=== PATIENT | female | born 1965 | race Caucasian/White ===

== ENCOUNTER 2016-12-25 16:16 | Emergency (ER) | payer BC ==
[~2016-12-25] VITALS: Ht 165.1 cm; Wt 78.6 kg
[~2016-12-25 16:16] MED LIST: ASPIRIN 81M81 MG/TA2 PO; FISH OIL1000 MG PO; LIPITOR 40MG TA40 MG PO; NO HOME MEDICATIONS; NORVASC 5MG5 MG/TAB PO; PLAVIX 75MG TAB75 MG PO; TOPROL XL 50MG50 MG PO; ZESTRIL 5MG5 MG PO
[2016-12-25 16:18] VITALS: BP 138/76; PULSE 86; TEMP 98.5
[2016-12-25] MEDS ORDERED: PREDNISONE10 MG PO (18:07)
[2016-12-25] MEDS ORDERED: LEVAQUIN 750MG750 M1 PO (18:07)
[2016-12-25] MEDS ORDERED: NORCO 325 MG-51 TAB PO (18:07)
== END 2016-12-25 18:21 | disposition home or self-care (01) ==
LOC: COL.ER 16:16
DX: J44.0 Chronic obstructive pulmonary disease with (acute) lower respiratory infection (principal); J20.9 Acute bronchitis, unspecified; J44.1 Chronic obstructive pulmonary disease with (acute) exacerbation; R07.89 Other chest pain; I10 Essential (primary) hypertension; I25.10 Atherosclerotic heart disease of native coronary artery without angina pectoris; Z95.5 Presence of coronary angioplasty implant and graft; F17.210 Nicotine dependence, cigarettes, uncomplicated
CPT/HCPCS: J1885

== ENCOUNTER → 2017-06-13 | Outpatient (CLI) | payer BC ==
[~2017-06-13] MED LIST changes: +LEVAQUIN 750MG750 M1 PO; +NORCO 325 MG-51 TAB PO; +PREDNISONE10 MG PO
== END ==
LOC: COL.PUL 05-23 13:00
DX: R06.02 Shortness of breath (principal); F17.200 Nicotine dependence, unspecified, uncomplicated
CPT/HCPCS: J7674

== ENCOUNTER 2018-06-03 11:06 | Emergency (ER) | payer BC ==
[~2018-06-03] VITALS: Ht 162.6 cm; Wt 83.2 kg
[2018-06-03 11:09] VITALS: TEMP 98.3
[2018-06-03 11:47] LABS: BASO % 0.3 % (0.0-2.0); EOS # 0.1 (0.0-0.7); EOS % 0.8 % (0-4.0); GRAN # 10.3 (1.4-6.5); HEMATOCRIT 45.5 % (37.0-47.0); HEMOGLOBIN 15.1 g/dl (12.5-16.0); LYMPH # 2.8 (1.2-3.4); LYMPH % 19.6 % (20.0-51.0); MEAN CELL VOLUME 90 fl (80.0-100.0); MEAN CORPUSCULAR HEMOGLOBIN 30 pg (27.0-31.0); MEAN CORPUSCULAR HGB CONC 33 g/dl (33.0-37.0); MEAN PLATELET VOLUME 12.7 fl (7.4-10.4); MONO # 0.8 (0.1-0.6); MONO % 5.9 % (1.7-9.3); PLATELET COUNT 191 K/mm3 (130-400); RED BLOOD COUNT 5.04 M/mm3 (4.10-5.30); REDCELL DISTRIBUTION WIDTH-CV 12.8 % (11.5-14.5)
[2018-06-03 11:56] LABS: ALBUMIN 3.9 gm/dL (3.5-5.0); BILIRUBIN,TOTAL 0.6 mg/dL (0.0-1.0); CALCIUM 9.4 mg/dL (8.4-10.2); CREATININE, serum 0.88 mg/dL (0.52-1.25); POTASSIUM 4.1 mmol/L (3.4-5.0); TOTAL PROTEIN 7.3 gm/dL (6.4-8.2)
[2018-06-03] MEDS ORDERED: ZITHROMAX TRI-500 MG PO (12:57)
[2018-06-03] MEDS ORDERED: PREDNISONE20 MG PO (12:57)
[2018-06-03] MEDS ORDERED: ALBUTEROL0.83 MG/ML IH (12:57)
[2018-06-03] MEDS ORDERED: GLUCOPHAGE500 MG/TAB PO (12:57)
[2018-06-03] MEDS ORDERED: PRAVACHOL 40MG40 MG PO (12:58)
[2018-06-03] MEDS ORDERED: PERCOCET 325 MG1 TA2 PO (13:09)
[2018-06-03] MEDS ORDERED: NAPROSYN500 MG PO (13:09)
[2018-06-03 14:06] VITALS: BP 114/61; PULSE 71
== END 2018-06-03 14:07 | disposition home or self-care (01) ==
LOC: COL.ER 11:06
PROVIDERS: Nurse Practitioner Primary Care
DX: M94.0 Chondrocostal junction syndrome [Tietze] (principal); I25.2 Old myocardial infarction; E11.9 Type 2 diabetes mellitus without complications; E78.5 Hyperlipidemia, unspecified; I10 Essential (primary) hypertension; F17.210 Nicotine dependence, cigarettes, uncomplicated; Z79.82 Long term (current) use of aspirin; Z79.84 Long term (current) use of oral hypoglycemic drugs; Z79.899 Other long term (current) drug therapy; Z87.19 Personal history of other diseases of the digestive system; Z90.49 Acquired absence of other specified parts of digestive tract
CPT/HCPCS: J2270; Q9967

== ENCOUNTER 2018-07-07 07:57 | Outpatient (CLI) | payer BC ==
[2018-07-07] VITALS (8 sets, daily range): BP systolic 121–141; BP diastolic 71–87; PULSE 63–79; TEMP 98.4
[~2018-07-07] VITALS: Ht 162.7 cm; Wt 83.7 kg
[~2018-07-07 07:57] MED LIST changes: +ALBUTEROL0.83 MG/ML IH; +GLUCOPHAGE500 MG/TAB PO; +NAPROSYN500 MG PO; +PERCOCET 325 MG1 TA2 PO; +PRAVACHOL 40MG40 MG PO; +PREDNISONE20 MG PO; +ZITHROMAX TRI-500 MG PO
[2018-07-07 09:13] LABS: HEMATOCRIT 43.7 % (37.0-47.0); HEMOGLOBIN 14.7 g/dl (12.5-16.0); MEAN CELL VOLUME 91 fl (80.0-100.0); MEAN CORPUSCULAR HEMOGLOBIN 30 pg (27.0-31.0); MEAN CORPUSCULAR HGB CONC 34 g/dl (33.0-37.0); MEAN PLATELET VOLUME 13.3 fl (7.4-10.4); PLATELET COUNT 159 K/mm3 (130-400); RED BLOOD COUNT 4.83 M/mm3 (4.10-5.30); REDCELL DISTRIBUTION WIDTH-CV 12.9 % (11.5-14.5)
[2018-07-07 10:00] LABS: INR 0.9 (0.8-3.0); PROTHROMBIN TIME 10.6 SECONDS (9.7-12.8)
[2018-07-07 10:36] LABS: ANION GAP 2 mmol/L (7-16); BLOOD UREA NITROGEN 15 mg/dL (7-17); CARBON DIOXIDE 27 mmol/L (22-30); CHLORIDE 110 mmol/L (98-107); CREATININE, serum 0.67 mg/dL (0.52-1.25); GLUCOSE 119 mg/dL (74-106); SODIUM 139 mmol/L (137-145)
[2018-07-07] MEDS ORDERED: TOPROL XL100 MG PO (11:53)
[2018-07-07] MEDS ORDERED: NORVASC 10MG10 MG PO (11:53)
== END 2018-07-07 16:46 | disposition home or self-care (01) ==
LOC: COL.CAR 07:57 → COL.RAD 08:30 → COL.CAR 08:30
PROVIDERS: Internal Medicine Cardiovascular Disease
DX: I25.10 Atherosclerotic heart disease of native coronary artery without angina pectoris (principal); I27.20 Pulmonary hypertension, unspecified; I42.1 Obstructive hypertrophic cardiomyopathy; R94.39 Abnormal result of other cardiovascular function study; I25.2 Old myocardial infarction; I10 Essential (primary) hypertension; I08.1 Rheumatic disorders of both mitral and tricuspid valves; Z95.5 Presence of coronary angioplasty implant and graft; Z82.49 Family history of ischemic heart disease and other diseases of the circulatory system
CPT/HCPCS: C1760; C1769; C1894; J1644; J2250; J3010; Q9967